=== PATIENT | female | born 1955 | race Caucasian/White ===

== ENCOUNTER 2018-02-10 05:20 | Day surgery (SDC) | payer BC ==
[2018-02-09 15:50] VITALS: BMI 23.4
[~2018-02-10 05:20] MED LIST: BUPIVACAINE HCL/PF 0.5% (5MG/ML) 10 ML VIAL PNB ONE
--- NOTE | 2018-02-10 06:31 | HP ---
History & Physical Update - History History: No Change - Physical Physical: No Change - Assessment Assessment: No Change - Plan Plan: No Change (No change in HP on 02/09/18)
[2018-02-10] MEDS ORDERED: ACETAMINOPHEN 325 MG TABLET (FP) PO PRN (10:20)
[2018-02-10] MEDS ORDERED: IBUPROFEN 400 MG TABLET (FP) PO PRN (10:21)
[2018-02-10] MEDS ORDERED: MIDAZOLAM HCL 2 MG/2 ML SINGLE DOSE VIAL ONE (10:52)
[2018-02-10] MEDS ORDERED: ROCURONIUM BROMIDE 50 MG/5 ML VIAL ONE (10:57)
[2018-02-10] MEDS ORDERED: PROPOFOL 20 ML ONE ×2 (10:57→11:56)
[2018-02-10] MEDS ORDERED: LIDOCAINE HCL/PF 2% SDV 5ML VIAL ONE (10:57)
[2018-02-10] MEDS ORDERED: KETOROLAC TROMETHAMINE 30 MG/1 ML VIAL ONE (11:06)
[2018-02-10] MEDS ORDERED: DEXAMETHASONE SOD PHOSPHATE 4 MG/1 ML VIAL ONE (11:06)
[2018-02-10] MEDS ORDERED: NEOSTIGMINE METHYLSULFATE 0.5 MG/ML - 10 ML MDV ONE (11:08)
[2018-02-10] MEDS ORDERED: GLYCOPYRROLATE 0.2 MG/1 ML VIAL ONE (11:08)
[2018-02-10] MEDS ORDERED: ceFAZolin SODIUM 1 GM VIAL IVPB ONE (11:15)
[2018-02-10] MEDS ORDERED: ceFAZolin SODIUM 1 GM VIAL ONE (11:22)
[2018-02-10] MEDS ORDERED: BUPIVACAINE HCL/PF 0.5% (5MG/ML) 10 ML VIAL PNB ONE (11:23)
[2018-02-10] MEDS ORDERED: BUPIVACAINE HCL/PF 0.5% (5MG/ML) 10 ML VIAL IJ ONE (11:23)
[2018-02-10] MEDS ORDERED: ONDANSETRON 4 MG/2 ML VIAL IVPUSH PRN (11:49)
[2018-02-10] MEDS ORDERED: LACTATED RINGERS SOLUTION 1,000 ML IV SCH (12:00)
--- NOTE | 2018-02-10 12:50 | OP ---
Operative Note - Note: Operative Date: 02/10/18 Pre-Operative Diagnosis: dysfunctional uterine bleeding Operation: Laparoscopic bilateral salpingectomy-oorphorectomy, Hysteroscopy with Lysis of adhesions, Dilation and curettage Post-Operative Diagnosis: Same as Pre-op Surgeon: Cony Palomo Jig Mill Operator: Zohreh Rivera Anesthesiologist/CREPE MAKER: Harsha Irby Anesthesia: General, Local Specimens Removed: Bilateral overies and Fallopian tubes Estimated Blood Loss (mls): 20 Fluid Volume Replaced (mls): 1,100 Operative Report Dictated: Yes
--- NOTE | 2018-02-10 12:50 | OP ---
DATE OF OPERATION: 02/10/2018 PREOPERATIVE DIAGNOSIS: Postmenopausal bleeding and genetic susceptibility, family history of BRCA positive. OPERATION: Laparoscopic bilateral salpingo-oophorectomy, hysteroscopy, dilation and curettage, lysis of adhesions. POSTOPERATIVE DIAGNOSIS: Postmenopausal bleeding and genetic susceptibility, family history of BRCA positive, intrauterine intrauterine adhesions. SURGEON: Cony Palomo MD PATIENT INSURANCE CLERK: EDINSON Bruner ANESTHESIA: General. FINDINGS: Normal tubes and ovaries, and intrauterine adhesions. DESCRIPTION OF PROCEDURE: The patient was taken to the operating room and placed in dorsal lithotomy position and prepped and draped in the usual sterile fashion. A time-out was called in accordance with hospital regulation. Attention was then drawn to the umbilicus where a 5-mm umbilical incision was made. Veress needle was inserted into the cavity. Approximately 3-4 L of CO2 was insufflated in the cavity. Trocars were then inserted. Laparoscope and camera attached. Visualization revealed normal tubes and ovaries. Two trocars were placed on the left and the right side under direct visualization after scalpel was used to make an incision. Trocars were inserted under direct visualization. LigaSure and grasper was then placed. The left tube was then grabbed, and ovary and cauterization and cutting of the left tube and ovary was done to the isthmic area of the tube. The procedure was repeated on the other side. The right tube and ovary were removed using LigaSure, coagulation, and cutting. Specimen was submitted to Pathology. Hemostasis was achieved. The uterus was noted to be normal. Liver and gallbladder normal. Normal anatomy. All instruments were then removed. CO2 was removed from the abdomen. Attention was then drawn to the pelvis where a speculum was placed. The cervix was then dilated, and visualization revealed uterine adhesions. Lysis of adhesions was done followed by dilation and curettage. Uterine cavity was seen and noted to be clean. Scar tissue was noted. No cancer, no polyps. Everything normal. Suction dilation and curettage was performed. All instruments were then removed. The patient had tolerated the procedure well and was taken to the recovery room in stable condition. Umbilical incisions were closed using 4-0 Biosyn suture in a subcuticular fashion. Wounds were washed and dressed. Estimated blood loss was 20 mL. CONY PALOMO M.D. LAURA/[id number] MTDD
--- NOTE | 2018-02-10 12:51 | SURG ---
Surgery Wool Supplier Note Wool Supplier: Zohreh Rivera PA-C Date of Service: 02/10/18 Diagnosis: Dysfunctional uterine bleeding Procedure: Laparoscopic bilateral salpingectomy-oorphorectomy, Hysteroscopy with Lysis of adhesions, Dilation and curettage I was present for the entirety of the operative procedure. For further detail, please refer to operative report. Visit type - Case Type Case Type: Scheduled - Emergency Emergency Visit: No - New patient This patient is new to me today: Yes Date on this admission: 02/10/18
[2018-02-10 15:10] VITALS: TEMP 97.6
[2018-02-10 16:00] VITALS: BP 123/62; PULSE 55
--- NOTE | 2018-02-11 11:17 | PATH ---
Surgical Pathology Report Patient Name: CHINYERE SANTANA [facility]. Rec. #: [id number] /Age/Gender: 1955 (Age: 62) / F Account: [id number] Location: [facility] Taken: 02/10/2018 Received: 02/10/2018 Reported: 02/11/2018 Physicians: Cony Palomo M.D. Specimen(s) Received A: RIGHT FALLOPIAN TUBE AND OVARY B: LEFT FALLOPIAN TUBE AND OVARY C: UTERINE CONTENTS Clinical History Postmenopausal bleeding Final Diagnosis A. RIGHT FALLOPIAN TUBE AND OVARY, SALPINGO-OOPHORECTOMY: RIGHT OVARY WITH CORPUS ALBICANS. RIGHT FALLOPIAN TUBE WITH NO DIAGNOSTIC ABNORMALITIES. B. LEFT FALLOPIAN TUBE AND OVARY, SALPINGO-OOPHORECTOMY: LEFT OVARY WITH CORPUS ALBICANS. LEFT FALLOPIAN TUBE WITH NO DIAGNOSTIC ABNORMALITIES. C. CONTENTS OF UTERUS: BLOOD AND SCANTY ENDOCERVICAL TISSUE WITH SQUAMOUS METAPLASIA. Electronically Signed Gumaro Byrd M.D. Gross Description A. Received in formalin labeled "right fallopian tube and ovary," is a 4.8 cm in length fimbriated fallopian tube. The outer surface is vargas-pink with a focal 1.0 cm in greatest dimension attached portion of adipose tissue. Sectioning of the fallopian tube reveals an unremarkable lumen. There is a 2.0 x 1.3 x 0.9 cm ovary attached to the outer surface of the fallopian tube. The outer surface of the ovary is vargas-yellow and convoluted. Sectioning reveals unremarkable ovarian parenchyma. Plastic Fixture Builder sections are submitted in 3 cassettes as follows: 1-fallopian tube fimbria; 2-major account representative cross sections of fallopian tube with attached fat; 3-major account representative ovary. B. Received in formalin labeled "left fallopian tube and ovary," is a 3.7 cm in length fimbriated fallopian tube. The outer surface is vargas-pink with a focal 0.9 cm in greatest dimension attached portion of adipose tissue. Sectioning of the fallopian tube reveals an unremarkable lumen. There is a 2.0 x 1.0 x 0.7 cm ovary attached to the outer surface of the fallopian tube. The outer surface of the ovary is vargas-yellow and convoluted. Sectioning reveals unremarkable ovarian parenchyma. Plastic Fixture Builder sections are submitted in 3 cassettes as follows: 1-fallopian tube fimbria; 2-major account representative cross sections of fallopian tube with attached fat; 3-major account representative ovary. C. Received in formalin labeled "contents of uterus," is a 1.0 x 0.8 x 0.1 cm aggregate of red vargas soft tissue fragments. The formalin is filtered and the specimen is entirely submitted in one cassette. 02/10/201802/10/2018
== END 2018-02-10 16:00 | disposition home or self-care (01) ==
LOC: JASU-SURG 05:20
PROVIDERS: ATTEND Obstetrics & Gynecology
PROC: 0UB24ZZ Excision of Bilateral Ovaries, Percutaneous Endoscopic Approach (ICD-10-PCS; principal; 2018-02-10 10:00)
PROC: 0UB74ZZ Excision of Bilateral Fallopian Tubes, Percutaneous Endoscopic Approach (ICD-10-PCS; 2018-02-10 10:00)
PROC: 0UDB8ZX Extraction of Endometrium, Via Natural or Artificial Opening Endoscopic, Diagnostic (ICD-10-PCS; 2018-02-10 10:00)
PROC: 0UN98ZZ Release Uterus, Via Natural or Artificial Opening Endoscopic (ICD-10-PCS; 2018-02-10 10:00)
DX: N95.0 Postmenopausal bleeding (principal); Z15.01 Genetic susceptibility to malignant neoplasm of breast; Z84.81 Family history of carrier of genetic disease; N85.6 Intrauterine synechiae
CPT/HCPCS: 86900; 88305-TC; 88307-TC; 94760

== ENCOUNTER 2024-02-17 07:22 | Day surgery (SDC) | payer OTHER ==
[2024-02-14 10:56] VITALS: BMI 23.4
[2024-02-17] MEDS ORDERED: LIDOCAINE HCL/PF 2% SDV 5ML VIAL ONE (07:30)
[2024-02-17] MEDS ORDERED: PROPOFOL 120 ML ONE (07:30)
[2024-02-17 09:32] VITALS: TEMP 97.6
[2024-02-17 09:35] VITALS: BP 102/68; PULSE 72; RESP 18
== END 2024-02-17 09:05 | disposition home or self-care (01) ==
LOC: FASU-ENDO 07:22
PROVIDERS: ATTEND Internal Medicine Gastroenterology
PROC: 0DJD8ZZ Inspection of Lower Intestinal Tract, Via Natural or Artificial Opening Endoscopic (ICD-10-PCS; principal; 2024-02-17 08:13)
DX: Z12.11 Encounter for screening for malignant neoplasm of colon (principal); K57.30 Diverticulosis of large intestine without perforation or abscess without bleeding; Z80.0 Family history of malignant neoplasm of digestive organs; Z83.719 Family history of colon polyps, unspecified